=== PATIENT | female | born 1985 | race Caucasian/White ===

== ENCOUNTER 2016-05-23 21:51 | Observation (INO) | payer BC, OTHER ==
[~2016-05-23] VITALS: Ht 162.6 cm; Wt 57.1 kg
[~2016-05-23 21:51] MED LIST: DIPH-416 PO; PROM25TA PO
[2016-05-23] MEDS ORDERED: ONDANSETRON INJ 2 MG/ML 2 ML VIAL IV STA (22:50)
[2016-05-23] MEDS ORDERED: SODIUM CHLORIDE 0.9% 1000ML 1,000 ML IV STA (22:50)
[2016-05-23] MEDS ORDERED: MoRPHine SULFATE 2 MG/ML CARP IV STA (22:50)
[2016-05-23] MEDS ORDERED: CHOL100027 PO (22:55)
[2016-05-23] MEDS ORDERED: OMEG12006 PO (22:55)
[2016-05-23] MEDS ORDERED: MULT-506 PO (22:55)
[2016-05-23] MEDS ORDERED: B-COTAB18 PO (22:55)
[2016-05-23] MEDS ORDERED: OPTIRAY 320 IV PRN (23:00)
[2016-05-23 23:10] LABS: BASO % 0.3 %; BASO ABS # 0.04 K/uL (0-0.2); COMPLETE YES; EOS % 0.2 %; HEMATOCRIT 33.3 % (37-47); IG% 0.2 %; LYMPH % 11.2 %; LYMPH ABS # 1.44 K/uL (1.2-3.4); MEAN CELL VOLUME 84.1 fL (80-100); MEAN CORPUSCULAR HEMOGLOBIN 27.3 pg (25-34); MEAN CORPUSCULAR HGB CONC 32.4 g/dl (32-36); MEAN PLATELET VOLUME 10.7 fL (7.4-10.4); MONO % 5.4 %; NEUT % 82.7 %; PLATELET COUNT 157 K/uL (130-400); RED BLOOD COUNT 3.96 M/uL (4.2-5.4); WHITE BLOOD COUNT 12.86 K/uL (4.8-10.8)
[2016-05-23 23:14] LABS: URINE APPEARANCE CLEAR (CLEAR); URINE BILIRUBIN NEG (NEG); URINE COLOR YELLOW; URINE EPITHELIAL CELL AUTO 20-30 /lpf (0-5); URINE NITRITE NEG (NEG); URINE PH 7.5 (4.5-7.5); URINE SPECIFIC GRAVITY 1.007 (1.000-1.030); UROBILINOGEN NEG (NEG); ZZUR CULT IF INDIC CLEAN CATCH YES
[2016-05-23 23:17] LABS: MANUAL MICROSCOPIC REQUIRED? NO; REVIEW REQ? NO
[2016-05-23 23:31] LABS: BUN/CREATININE RATIO 11.6 (10-20); CALCIUM 8.6 mg/dl (8.5-10.1); CREATININE 0.7 mg/dl (0.60-1.20); MAGNESIUM 2.4 mg/dl (1.8-2.4); POTASSIUM 3.7 mmol/L (3.5-5.1)
[2016-05-23 23:33] LABS: ALB/GLOB RATIO 1.1 (0.9-2)
[2016-05-24] VITALS (8 sets, daily range): BP systolic 88–99; BP diastolic 53–62; PULSE 76–90; TEMP 36.9–37.2; O2SAT 96–99; Ht 162.6 cm; Wt 57.1 kg
[2016-05-24] MEDS ORDERED: MoRPHine SULFATE 4 MG/ML 1 ML CARP\\VIAL IV STA (00:02)
[2016-05-24] MEDS ORDERED: MoRPHine SULFATE 2 MG/ML CARP IV STA ×2 (01:17→04:02)
[2016-05-24] MEDS ORDERED: CEFOXITIN SOD 2 GM VIAL IV STA (04:45)
[2016-05-24] MEDS ORDERED: SODIUM CHLORIDE 0.9% 1000ML 1,000 ML IV STA (04:45)
[2016-05-24] MEDS ORDERED: FENTANYL CITRATE INJ 50 MCG/1 ML 2 ML VIAL ONE (05:45)
[2016-05-24] MEDS ORDERED: MIDAZOLAM HCL 1 MG/ML 2ML VIAL ONE (05:45)
--- NOTE | 2016-05-24 06:08 | History and Physical ---
History & Physical Date May 24, 2016. Chief Complaint abdominal pain for approx 36 hours History of Present Illness The patient is a 30 year old female with complaints of Additional History Hepatic Disease: No Endocrine Disorder: No Kidney Disease: No Hypertension: No Heart Disease: No Bleeding Tendencies: No Infectious Diseases: No Allergies Coded Allergies: No Known Allergies (Unverified , 11/18/14) Home Medications Scheduled B-Complex Vitamins (Vitamin B Complex), 1 TAB PO DAILY Cholecalciferol (Vitamin D 1000 Unit), 1,000 INTER.UNIT PO DAILY Multivitamin (Multivitamin), 1 TAB PO DAILY [place]-3 Fatty Acids ([place] 3), 1 CAP PO TID Physical Examination Skin: warm/dry Eyes: normal inspection, EOMI Head: normocephalic Neck: supple, trachea midline Respiratory/Chest: no respiratory distress Cardiovascular: regular rate, rhythm, no edema Abdomen / GI: + pertinent finding (+diffuse ttp > in RLQ and suprapubic region. + guarding/rebound) Extremities: normal inspection Neurologic/Psych: alert, oriented x 3 Diagnosis acute appendicitis Plan of Treatment discussed options/risks ( bleeding/dvt/pe/infection/injury to organs etc..). answered their questions. Ok to proceed with lap appy possible open/surgery as needed.
[2016-05-24] MEDS ORDERED: BUPIVACAINE/EPINEPHRINE 0.5% MPF 1:200,000 30 ML VIAL ONE (06:09)
[2016-05-24] MEDS ORDERED: ATROPINE SULFATE 0.1 MG/ML 5ML SYR IV PRN (06:15)
[2016-05-24] MEDS ORDERED: HYDROmorphone INJ 2 MG/ML SYR/VIAL IV PRN (06:15)
[2016-05-24] MEDS ORDERED: KETOROLAC TROMETHAMINE 30 MG/ML VIAL IV. PRN (06:15)
[2016-05-24] MEDS ORDERED: ONDANSETRON INJ 2 MG/ML 2 ML VIAL IV PRN (06:15)
[2016-05-24] MEDS ORDERED: PROMETHAZINE HCL INJ 12.5 MG in SODIUM CHLORIDE 0.9% 50ML 50 ML IV PRN (06:15)
[2016-05-24] MEDS ORDERED: HYDR-5688 PO (06:25)
--- NOTE | 2016-05-24 07:27 | DIAGNOSTIC IMAGING REPORT ---
ABDOMEN AND PELVIS CT WITH ORAL CONTRAST CT DOSE: 280.88 mGy.cm HISTORY: Right lower quadrant abdominal pain. TECHNIQUE: Multiaxial CT images of the abdomen and pelvis were performed following the use of oral contrast. COMPARISON STUDY: Abdomen and pelvis CT 05/24/2016. FINDINGS: The lung bases are clear. No pneumoperitoneum. No pneumatosis. The unenhanced liver, spleen, adrenal glands, pancreas, and kidneys are unremarkable. No hydronephrosis. Normal gallbladder. No retroperitoneal lymphadenopathy. No evidence for bowel obstruction. The bladder is not well-distended but appears unremarkable. Left ovarian cystic lesions are again identified. These measure up to 3.3 cm in size. The proximal portion of the appendix is normal in caliber and fills with contrast. This is seen on image 297. However, the mid to distal portion is fluid-filled and distended up to 1 cm. No significant periappendiceal fat stranding time. Contrast is seen throughout the colon. IMPRESSION: The proximal portion of the appendix is normal in caliber and filled with oral contrast. However, the mid to distal portion is fluid-filled and distended up to 1 cm. This no significant periappendiceal fat stranding at this time. However, this is considered abnormal and could represent an early acute appendicitis. Left ovarian cysts are again noted. Electronically signed by: Obie Landrum M.D. 05/24/2016 7:25 AM Dictated Date/Time: 05/24/2016 7:19 AM
--- NOTE | 2016-05-24 07:34 | DIAGNOSTIC IMAGING REPORT ---
CT ABD/PELVIS IV CONTRAST ONLY CLINICAL HISTORY: Lower abdominal pain COMPARISON STUDY: Pelvic ultrasound dated 05/23/2016 TECHNIQUE: Following the IV administration of 91 mL of Optiray-320, CT scan of the abdomen and pelvis was performed from the lung bases to the proximal femurs. Images are reviewed in the axial, sagittal, and coronal planes. IV contrast was administered without complication. CT DOSE: 276.57 mGy.cm FINDINGS: Lower chest: The heart is normal in size and configuration, without pericardial effusion. The lung bases and pleural spaces are clear. Liver: The contrast-enhanced liver is normal in size, contour, and attenuation. There is no intrahepatic biliary ductal dilatation. The hepatic veins and portal veins are patent. Gallbladder: Unremarkable. Spleen: Normal in size and attenuation. Pancreas: Unremarkable. Adrenal glands: Unremarkable. Kidneys: There is symmetric renal cortical enhancement. The kidneys are normal in size without hydronephrosis. Bowel: There are no transition zones indicate bowel obstruction. The appendix is not visualized with certainty. The examination is limited due to the lack of oral contrast. Peritoneum: There is no intraperitoneal free air or abdominal ascites. Vasculature: The abdominal aorta is normal in course and caliber. Adenopathy: None. Pelvic viscera: There are tangential left ovarian cystic lesions measuring 5.8 cm in aggregate. Skeletal structures: No destructive osseous lesions are seen. IMPRESSION: 1. No evidence of bowel obstruction. No evidence of free air 2. Tangential left ovarian cystic lesions measuring 5.8 cm in aggregate 3. Nonvisualization of the appendix. No pericecal inflammatory changes identified. Electronically signed by: Ervin Dove M.D. 05/24/2016 7:32 AM Dictated Date/Time: 05/24/2016 7:25 AM
--- NOTE | 2016-05-24 07:55 | [facility] Operative Report ---
Operative Report Operative Date May 24, 2016. Pre-Operative Diagnosis Acute appendicitis Post-Operative Diagnosis 1. acute appendicitis 2. ruptured/hemorrhagic right ovarian cyst vs endomet Procedure(s) Performed 1. lap appy 2. peritoneal bx Surgeon Dr. Willis Hide Trimmer Surgeon(s) Atif Wells PA-C Findings acute appendicitis;ruptured right ovarian cyst; ? endometriosis Specimens A. Appendix B. peritoneal biopsy Anesthesia get Disposition Recovery Room / PACU I attest to the content of the Intraoperative Record and any orders documented therein. Any exceptions are noted below.
[2016-05-24] MEDS ORDERED: MEPERIDINE HCL 25 MG/ML CARP IV PRN (08:15)
[2016-05-24] MEDS ORDERED: MoRPHine SULFATE 4 MG/ML 1 ML CARP\\VIAL IV PRN (08:15)
[2016-05-24] MEDS ORDERED: MEPERIDINE HCL 25 MG/ML CARP ONE (08:29)
--- NOTE | 2016-05-24 08:34 | DIAGNOSTIC IMAGING REPORT ---
PELVIC ULTRASOUND, TRANSABDOMINAL AND TRANSVAGINAL HISTORY: pelvic pain/bloating COMPARISON: None. FINDINGS: Uterus: Retroflexed. Endometrial stripe: 3 mm in thickness. Right ovary: Normal in size and demonstrates normal color flow. Nonspecific soft tissue adjacent to the right ovary which demonstrates increased vascularity/color flow. Left ovary: 5.6 x 2.7 x 4.9 cm. There are 2 similar-appearing hyperechoic complex cystic lesions. One of these demonstrate a fluid/fluid level. The dominant lesion measures 3.9 cm. These likely represent hemorrhagic cysts. Miscellaneous:Trace pelvic free fluid. IMPRESSION: 1. There are 2 similar-appearing hyperechoic complex cystic lesions within the left ovary. One of these demonstrates a fluid/fluid level. Therefore, these likely represent hemorrhagic cysts. The dominant lesion measures 3.9 cm. Follow-up pelvic ultrasound in 6-8 weeks is recommended to ensure resolution. 2. Normal right ovary. However, there is nonspecific soft tissue adjacent to the right ovary which demonstrates increased vascularity. This could be due to bowel or an inflamed fallopian tube. Electronically signed by: Obie Landrum M.D. 05/24/2016 8:32 AM Dictated Date/Time: 05/24/2016 8:27 AM
--- NOTE | 2016-05-24 08:47 | OPERATIVE REPORT ---
DATE OF OPERATION: 05/24/2016 PREOPERATIVE DIAGNOSIS: Acute appendicitis. POSTOPERATIVE DIAGNOSES: Same with a ruptured right ovarian cyst, hemoperitoneum, and questionable pelvic endometriosis. PROCEDURES: 1. Laparoscopic appendectomy. 2. Peritoneal biopsy to rule out endometriosis. SURGEON: Dr. Willis. E [employer] MANAGER: Atif Wells PA-C. ESTIMATED BLOOD LOSS: 20 mL COMPLICATION: No immediate. ANESTHESIA: General. The patient tolerated the procedure well. OPERATIVE NOTE: After informed consent was obtained, the patient was taken to the operating suite, placed in supine position. After successful intubation, a Rasmussen catheter was placed and the abdomen was sterilely prepped and draped in usual fashion. A periumbilical incision was made with an 11 blade scalpel and carried down through the soft tissues using electrocautery. Anterior rectus fascia was opened using electrocautery and two #0 Vicryl stay sutures were placed. Peritoneum was elevated with hemostats and incised under direct vision using a Metzenbaum scissors. A finger sweep was performed and a 12 mm [place] trocar was placed. The abdomen was insufflated to 18 mmHg. Laparoscope was inserted and the abdomen examined 360 degrees. We immediately noted blood within the pelvis. We placed a suprapubic 5 mm port and a left lower quadrant 12 mm port under direct vision. The patient was airplaned to the left and placed in a slight Trendelenburg position. We suctioned out the pelvic blood. It was not a large amount of blood. There was a ruptured right ovarian cyst with clot on it. On the right ovary, there was also extensive blood and clot as well as on the anterior surface of the sigmoid and the undersurface of the uterus. There was this abnormal appearing tissue, it was difficult for me to tell if it was endometrial tissue versus blood staining versus blood clot. There did seem to be a slight inflammatory type of reaction between the patient's left ovary and the sigmoid colon. When we manipulated this area, there was some old chocolate cyst type of blood that we were able to express out of the area between the left ovary and the sigmoid. I got all out of this that I safely could and then suctioned and thoroughly irrigated the pelvis. On some of the surfaces of the uterus as well as the right ovary and peritoneum, I was able to obtain several pieces of specimen that we sent to be checked for possible endometriosis. We did turn our attention to the right lower quadrant. The appendix itself was retrocecal. We opened up the peritoneal window laterally and bluntly dissected out the appendix. The proximal part of the appendix was dilated and felt thickened. I was able to create a window in the mesoappendix with the [place] dissector and staple off the base of the appendix from the cecum with a ROSEMARY may cartridge linear stapler. We then continued to dissect free the appendix. I then used the same may stapler to take down the mesoappendix. We placed it into an EndoCatch bag and removed it from the abdomen. The staple line was intact, there was adequate hemostasis. We did run the terminal ileum backward for about 3-4 feet and saw no other abnormality. No other abnormality other than previously stated was found. We did thoroughly irrigate the right lower quadrant as well as the pelvis again. At the end of the case, there was adequate hemostasis. We then removed all the trocars and desufflated the abdomen. The fascia of the camera port as well as the left lower quadrant was closed with 0 Vicryl in [id number] fashion. The wounds were all irrigated and closed using 4-0 Monocryl. Marcaine was injected around them for postoperative analgesia and skin glue used as dressings. The patient was awakened, extubated and transferred to recovery in stable condition. I attest to the content of the Intraoperative Record and any orders documented therein. Any exceptio ns are noted below.
--- NOTE | 2016-05-24 08:55 | Anesthesiology Progress Note ---
Anesthesia Post Op Note Date & Time May 24, 2016 at 08:54 Vital Signs Pain Intensity: 6 Vital Signs Past 12 Hours Date Time Temp Pulse Resp B/P Pulse Ox O2 Delivery O2 Flow Rate FiO2 05/24/16 08:35 105 24 123/82 100 Nasal Cannula 2 05/24/16 08:25 80 24 108/54 100 Nasal Cannula 2 05/24/16 08:15 92 24 109/56 100 Nasal Cannula 2 05/24/16 08:09 36.3 100 24 116/59 99 Nasal Cannula 2 05/24/16 05:55 89 18 116/65 98 Room Air 05/24/16 04:00 86 18 102/54 99 Room Air 05/24/16 01:29 86 18 99/55 98 Room Air 05/24/16 00:09 85 18 96/53 100 Room Air 05/23/16 21:54 37.4 112 18 116/60 100 Room Air Notes Mental Status: alert / awake / arousable, participated in evaluation Pt Amnestic to Procedure: Yes Nausea / Vomiting: adequately controlled Pain: adequately controlled Airway Patency, RR, SpO2: stable & adequate BP & HR: stable & adequate Hydration State: stable & adequate Anesthetic Complications: no major complications apparent
[2016-05-24] MEDS ORDERED: IV FLUIDS COMPLETED PRN (09:00)
[2016-05-24] MEDS: LACTATED RINGER'S 1000ML 1,000 ML IV SCH ×2 (09:47→20:04)
[2016-05-24] MEDS: ONDANSETRON INJ 2 MG/ML 2 ML VIAL IV PRN ×2 (09:58→15:59)
[2016-05-24] MEDS ORDERED: ACETAMINOPHEN IV 100 ML IV PRN (13:45)
[2016-05-24] MEDS ORDERED: HYDROmorphone INJ 0.5 MG/0.5 ML SYR ONE (14:34)
[2016-05-24] MEDS ORDERED: ACETAMINOPHEN IV 1,000 MG in EMPTY BAG 0 ML IV SCH (15:00)
[2016-05-24] MEDS: HYDROmorphone INJ 0.5 MG/0.5 ML SYR IV PRN (16:51)
[2016-05-24] MEDS: HYDROCODONE/ACETAMOPHEN 5/325MG TAB PO PRN ×2 (20:08→23:43)
[2016-05-25] MEDS ORDERED: ACETAMINOPHEN IV 1,000 MG in EMPTY BAG 0 ML IV PRN
[2016-05-25] MEDS: HYDROmorphone INJ 0.5 MG/0.5 ML SYR IV PRN ×2 (00:35→05:01)
[2016-05-25 03:21] VITALS: BP 102/67; PULSE 69; TEMP 37; O2SAT 98
[2016-05-25] MEDS: LACTATED RINGER'S 1000ML 1,000 ML IV SCH (03:51)
[2016-05-25] MEDS: HYDROCODONE/ACETAMOPHEN 5/325MG TAB PO PRN (03:52)
[2016-05-25] MEDS: ONDANSETRON INJ 2 MG/ML 2 ML VIAL IV PRN (07:29)
[2016-05-25 07:38] VITALS: BP 103/64; PULSE 64; TEMP 36.7; O2SAT 98
[2016-05-25 08:06] LABS: BASO % 0.2 %; BASO ABS # 0.01 K/uL (0-0.2); EOS % 1.2 %; IG% 0.2 %; LYMPH ABS # 1.31 K/uL (1.2-3.4); MEAN CELL VOLUME 85.6 fL (80-100); MEAN CORPUSCULAR HEMOGLOBIN 27.2 pg (25-34); MEAN CORPUSCULAR HGB CONC 31.8 g/dl (32-36); MEAN PLATELET VOLUME 10.4 fL (7.4-10.4); MONO % 7.6 %; NEUT % 63.8 %; PLATELET COUNT 132 K/uL (130-400); RED BLOOD COUNT 3.27 M/uL (4.2-5.4); WHITE BLOOD COUNT 4.86 K/uL (4.8-10.8)
[2016-05-25 08:53] LABS: COMPLETE YES; GIANT PLATELETS 1+; HYPOCHROMIA PRESENT
--- NOTE | 2016-05-25 11:14 | Surgery Progress Note ---
Surgery Progress Note Date of Service May 25, 2016. Subjective Post OP Day: 1 + bowel movement, + feeling well, + nausea overall feeling much better. having loose bm's and some mild nausea. no emesis. doug diet. Objective Vital Signs: Date Time Temp Pulse Resp B/P Pulse Ox O2 Delivery O2 Flow Rate FiO2 05/25/16 07:42 Room Air 05/25/16 07:38 36.7 64 19 103/64 98 Room Air 05/25/16 03:21 37.0 69 16 102/67 98 Room Air 05/24/16 23:30 Room Air 05/24/16 23:05 36.9 76 16 95/62 99 Room Air 05/24/16 16:30 99 Room Air 05/24/16 15:42 37.1 78 18 88/56 99 Room Air 05/24/16 11:22 88 95/57 General Appearance: no apparent distress Head: normocephalic Abdomen: soft, + pertinent finding (mild distension. expected tenderness) Incision(s): clean, dry, intact Laboratory Results: Results Past 24 Hours Test 05/25/16 07:53 Range/Units White Blood Count 4.86 4.8-10.8 K/uL Red Blood Count 3.27 4.2-5.4 M/uL Hemoglobin 8.9 12.0-16.0 g/dL Hematocrit 28.0 37-47 % Mean Corpuscular Volume 85.6 80-100 fL Mean Corpuscular Hemoglobin 27.2 25-34 pg Mean Corpuscular Hemoglobin Concent 31.8 32-36 g/dl Platelet Count 132 130-400 K/uL Mean Platelet Volume 10.4 7.4-10.4 fL Neutrophils (%) (Auto) 63.8 % Lymphocytes (%) (Auto) 27.0 % Monocytes (%) (Auto) 7.6 % Eosinophils (%) (Auto) 1.2 % Basophils (%) (Auto) 0.2 % Neutrophils # (Auto) 3.10 1.4-6.5 K/uL Lymphocytes # (Auto) 1.31 1.2-3.4 K/uL Monocytes # (Auto) 0.37 0.11-0.59 K/uL Eosinophils # (Auto) 0.06 0-0.5 K/uL Basophils # (Auto) 0.01 0-0.2 K/uL RDW Standard Deviation 41.2 36.4-46.3 fL RDW Coefficient of Variation 13.0 11.5-14.5 % Immature Granulocyte % (Auto) 0.2 % Immature Granulocyte # (Auto) 0.01 0.00-0.02 K/uL Giant Platelets 1+ Hypochromasia PRESENT Microbiology Results 05/24/16 C.difficile Toxin B Gene (PCR) - Final, Complete No C. difficile toxin B gene detected Assessment & Plan POD 1 from [facility]. also had hemorrhagic left ovarian cyst and menstrual cycle clinically improved..wbc decreased to 4 ( 12) slight decrease in H/H likely secondary to menses/dilution/surgery/cyst wants to go home ok for d/c. instructions given.
[2016-05-25] MEDS ORDERED: ONDA4TAB10 SL (11:17)
--- NOTE | 2016-05-25 11:18 | Discharge Instructions ---
Discharge Instructions Date of Service May 24, 2016. Admission Reason for Admission: Severe Abdominal Pain - Loating - Fever - [place] Discharge Discharge Diagnosis / Problem: appendicitis;ovarian cyst Discharge Goals Goal(s): Decrease discomfort, Improve function Activity Recommendations Activity Limitations: as noted below Exercise/Sports Limitations: until after follow-up appointment May Resume Sexual Activity: after follow-up appointment Shower/Bathe: tomorrow . Instructions / Follow-Up Instructions / Follow-Up call [phone] to schedule a follow up with Dr. Willis in 1-2 weeks or if you have any problems/questions. Current Hospital Diet Patient's current hospital diet: Discharge Diet Recommended Diet: Regular Diet Procedures Procedures Performed: lap appy Pending Studies Studies pending at discharge: yes List of pending studies: path report Medical Emergencies . Who to Call and When: Medical Emergencies: If at any time you feel your situation is an emergency, please call 911 immediately. . Non-Emergent Contact Non-Emergency issues call your: Primary Care Provider, Surgeon Call Non-Emergent contact if: temperature is above 101, wound has increased drainage, wound has increased redness, wound has increased pain . "Provider Documentation" section prepared by Tian Willis. VTE Core Measure Inpt VTE Proph given/why not?: SCD's
[2016-05-25] MEDS ORDERED: CHOL4POW2 PO ×2 (11:21→11:27)
[2016-05-25 11:35] VITALS: BP 103/64; PULSE 64; TEMP 36.7; O2SAT 98
--- NOTE | 2016-05-26 10:24 | DISCHARGE SUMMARY ---
PRIMARY DISCHARGE DIAGNOSES: 1. Acute appendicitis. 2. Ruptured right ovarian cyst. PROCEDURE PERFORMED: Laparoscopic appendectomy and peritoneal biopsy to rule out endometriosis. HOSPITAL COURSE: The patient is a 30-year-old female who presented to the Emergency Department with a complaint of abdominal pain. Workup included ultrasound which showed hemorrhagic left ovarian cyst. Noncontrast CT again showed left ovarian cyst. The appendix was not visualized, and therefore, a contrast CT was obtained. The appendix was fluid filled, distended 1 cm, possibly consistent with early appendicitis. Her white count was also elevated. She was taken to the operating room for laparoscopy. She did have an abnormal appearing appendix as well as a hemorrhagic right ovarian cyst. The procedure was well tolerated. She was transferred to the surgical floor. Her pain control was marginal that evening. By the next morning, her pain control was better, she was tolerating oral analgesics and the diet. She was stable for discharge. DISCHARGE INSTRUCTIONS: Discharge home. Follow up with Dr. Willis in 2 weeks. PATHOLOGY: Pending on the appendix specimen as well as the peritoneal biopsies. DISCHARGE MEDICATIONS: [place] 1-2 tablets every 4 hours as needed, Zofran 4 mg every 6 hours as needed, Questran 4-gram powder packet q. 6 hours. Can resume her home supplements including vitamin B, vitamin D, multivitamin, and omega-3. MTDD
--- NOTE | 2016-05-27 03:21 | EMERGENCY ROOM VISIT NOTE ---
History First contact with patient: 22:41 Chief Complaint: ABDOMINAL PAIN Stated Complaint: APPENDICITIS Nursing Triage Summary: Pt reports mid abdominal pain that radiates into the upper abdomen with movement. Pt reports that pain started yesterday with nausea and vomiting. Pt has been unable to eat or drink much today and has not vomited since last night. History of Present Illness The patient is a 30 year old female who presents to the Emergency Department by private vehicle for evaluation of her lower abdominal pain which is focused into the RIGHT lower quadrant. She reports that she has had symptoms for the past 24 hours. She reports that her symptoms initially started with cramping abdominal pain which she attributed to the start of her menses. She reports that she is now out. Seen bloating and pressure as well as stabbing pain to the RIGHT lower quadrant. This evening, she developed a fever of 101F. She took Aleve at approximately 1 PM. She describes this current menstrual cycle as "normal" without heavy bleeding. The patient reports some dizziness as well as nausea. She rates her current discomfort as an 8/10. She denies a previous bowel surgeries. Patient denies any headaches, chest pain, palpitations, shortness of breath, hematemesis, hematochezia, melena, hematuria, or dysuria. Review of Systems A complete 10-point Review of Systems was discussed with the patient, with pertinent positives and negatives listed in the History of Present Illness. All remaining Review of Systems questions can be considered negative unless otherwise specified. Past Medical/Surgical History Medical Problems: (1) Appendicitis Social History Smoking Status: Never Smoker Smokeless Tobacco Use: No Drug Use: none Occupation Status: employed Current/Historical Medications Scheduled B-Complex Vitamins (Vitamin B Complex), 1 TAB PO DAILY Cholecalciferol (Vitamin D 1000 Unit), 1,000 INTER.UNIT PO DAILY Cholestyramine Light (Questran Powder Light), 4 GM PO Q6 Multivitamin (Multivitamin), 1 TAB PO DAILY Jal-3 Fatty Acids (Jal 3), 1 CAP PO TID Ondasetron Odt (Zofran Odt), 4 MG SL Q6H Scheduled PRN Hydrocodone/Acetaminophen 5MG/325MG ([place] 5MG/325MG), 1-2 TABLET PO Q4H PRN for Pain Allergies Coded Allergies: No Known Allergies (Unverified , 11/18/14) Physical Exam Vital Signs Date Time Temp Pulse Resp B/P Pulse Ox O2 Delivery O2 Flow Rate FiO2 05/24/16 08:15 92 24 109/56 100 Nasal Cannula 2 05/24/16 08:09 36.3 100 24 116/59 99 Nasal Cannula 2 05/24/16 05:55 89 18 116/65 98 Room Air 05/24/16 04:00 86 18 102/54 99 Room Air 05/24/16 01:29 86 18 99/55 98 Room Air 05/24/16 00:09 85 18 96/53 100 Room Air 05/23/16 21:54 37.4 112 18 116/60 100 Room Air Pain Rating (0-10): 8 Physical Exam VITAL SIGNS - Vital signs and nursing notes were reviewed. GENERAL - 30-year-old female appearing her stated age who is in no acute distress. Communicates well with provider and answers questions appropriately. LUNGS - Chest wall symmetric without accessory muscle use, intercostals retractions, or central cyanosis. Normal vesicular breath sounds CTA B/L. No wheezes, rales, or rhonchi appreciated. CARDIAC - RRR with S1/S2. No murmur, rubs, or gallops appreciated. ABDOMEN - Abdominal contour flat and without pulsations or visible masses. BS normoactive all four quadrants. Moderate tenderness to palpation appreciated in the RIGHT lower quadrant. No guarding. No Rebound Tenderness. Negative Rovsing' s. Negative Martinez's. No palpable masses, hepatosplenomegaly, or ascites noted. PSYCH - A&Ox3 and cooperates fully with examiner. Pt is very pleasant and interacts well with examiner. Medical Decision & Procedures ER Provider Diagnostic Interpretation: Radiological imaging and reports were reviewed by myself. Radiologist's Interpretation as follows: PELVIC ULTRASOUND, TRANSABDOMINAL AND TRANSVAGINAL HISTORY: pelvic pain/bloating COMPARISON: None. FINDINGS: Uterus: Retroflexed. Endometrial stripe: 3 mm in thickness. Right ovary: Normal in size and demonstrates normal color flow. Nonspecific soft tissue adjacent to the right ovary which demonstrates increased vascularity/color flow. Left ovary: 5.6 x 2.7 x 4.9 cm. There are 2 similar-appearing hyperechoic complex cystic lesions. One of these demonstrate a fluid/fluid level. The dominant lesion measures 3.9 cm. These likely represent hemorrhagic cysts. Miscellaneous:Trace pelvic free fluid. IMPRESSION: 1. There are 2 similar-appearing hyperechoic complex cystic lesions within the left ovary. One of these demonstrates a fluid/fluid level. Therefore, these likely represent hemorrhagic cysts. The dominant lesion measures 3.9 cm. Follow-up pelvic ultrasound in 6-8 weeks is recommended to ensure resolution. 2. Normal right ovary. However, there is nonspecific soft tissue adjacent to the right ovary which demonstrates increased vascularity. This could be due to bowel or an inflamed fallopian tube. CT ABD/PELVIS IV CONTRAST ONLY CLINICAL HISTORY: Lower abdominal pain COMPARISON STUDY: Pelvic ultrasound dated 05/23/2016 TECHNIQUE: Following the IV administration of 91 mL of Optiray-320, CT scan of the abdomen and pelvis was performed from the lung bases to the proximal femurs. Images are reviewed in the axial, sagittal, and coronal planes. IV contrast was administered without complication. CT DOSE: 276.57 mGy.cm FINDINGS: Lower chest: The heart is normal in size and configuration, without pericardial effusion. The lung bases and pleural spaces are clear. Liver: The contrast-enhanced liver is normal in size, contour, and attenuation. There is no intrahepatic biliary ductal dilatation. The hepatic veins and portal veins are patent. Gallbladder: Unremarkable. Spleen: Normal in size and attenuation. Pancreas: Unremarkable. Adrenal glands: Unremarkable. Kidneys: There is symmetric renal cortical enhancement. The kidneys are normal in size without hydronephrosis. Bowel: There are no transition zones indicate bowel obstruction. The appendix is not visualized with certainty. The examination is limited due to the lack of oral contrast. Peritoneum: There is no intraperitoneal free air or abdominal ascites. Vasculature: The abdominal aorta is normal in course and caliber. Adenopathy: None. Pelvic viscera: There are tangential left ovarian cystic lesions measuring 5.8 cm in aggregate. Skeletal structures: No destructive osseous lesions are seen. IMPRESSION: 1. No evidence of bowel obstruction. No evidence of free air 2. Tangential left ovarian cystic lesions measuring 5.8 cm in aggregate 3. Nonvisualization of the appendix. No pericecal inflammatory changes identified. ABDOMEN AND PELVIS CT WITH ORAL CONTRAST CT DOSE: 280.88 mGy.cm HISTORY: Right lower quadrant abdominal pain. TECHNIQUE: Multiaxial CT images of the abdomen and pelvis were performed following the use of oral contrast. COMPARISON STUDY: Abdomen and pelvis CT 05/24/2016. FINDINGS: The lung bases are clear. No pneumoperitoneum. No pneumatosis. The unenhanced liver, spleen, adrenal glands, pancreas, and kidneys are unremarkable. No hydronephrosis. Normal gallbladder. No retroperitoneal lymphadenopathy. No evidence for bowel obstruction. The bladder is not well-distended but appears unremarkable. Left ovarian cystic lesions are again identified. These measure up to 3.3 cm in size. The proximal portion of the appendix is normal in caliber and fills with contrast. This is seen on image 297. However, the mid to distal portion is fluid-filled and distended up to 1 cm. No significant periappendiceal fat stranding time. Contrast is seen throughout the colon. IMPRESSION: The proximal portion of the appendix is normal in caliber and filled with oral contrast. However, the mid to distal portion is fluid-filled and distended up to 1 cm. This no significant periappendiceal fat stranding at this time. However, this is considered abnormal and could represent an early acute appendicitis. Left ovarian cysts are again noted. Laboratory Results 05/23/16 22:58 Test 05/23/16 22:58 Urine Color YELLOW Urine Appearance CLEAR (CLEAR) Urine pH 7.5 (4.5-7.5) Urine Specific [place] 1.007 (1.000-1.030) Urine Protein NEG (NEG) Urine Glucose (UA) NEG (NEG) Urine Ketones NEG (NEG) Urine Occult Blood 1+ (NEG) Urine Nitrite NEG (NEG) Urine Bilirubin NEG (NEG) Urine Urobilinogen NEG (NEG) Urine Leukocyte Esterase NEG (NEG) Urine WBC (Auto) 0 /hpf (0-5) Urine RBC (Auto) 0-4 /hpf (0-4) Urine Hyaline Casts (Auto) 0 /lpf (0-5) Urine Epithelial Cells (Auto) 20-30 /lpf (0-5) Urine Bacteria (Auto) 1+ (NEG) Urine Test NEG (NEG) Anion Gap 10.0 mmol/L (3-11) Est Creatinine Clear Calc Drug Dose 99.7 ml/min Estimated GFR () 132.9 Estimated GFR (Non- 114.6 BUN/Creatinine Ratio 11.6 (10-20) Calcium Level 8.6 mg/dl (8.5-10.1) Magnesium Level 2.4 mg/dl (1.8-2.4) Total Bilirubin 0.6 mg/dl (0.2-1) Aspartate Amino Transf (AST/SGOT) 21 U/L (15-37) Alanine Aminotransferase (ALT/SGPT) 26 U/L (12-78) Alkaline Phosphatase 75 U/L (45-117) Total Protein 7.3 gm/dl (6.4-8.2) Albumin 3.9 gm/dl (3.4-5.0) Globulin 3.4 gm/dl (2.5-4.0) Albumin/Globulin Ratio 1.1 (0.9-2) Lipase 127 U/L (73-393) Medications Administered Medications (Trade) Dose Ordered Sig/Lubna Route Start Time Stop Time Status Last Admin Dose Admin Sodium Chloride (Nss 1000ml) 1,000 ml @ 250 mls/hr Q4H STAT IV 05/23/16 22:50 05/24/16 02:49 DC 05/23/16 22:59 250 MLS/HR Ondansetron HCl (Zofran Inj) 4 mg NOW STAT IV 05/23/16 22:50 05/23/16 22:53 DC 05/23/16 22:59 4 MG Morphine Sulfate (MoRPHine SULFATE INJ) 2 mg NOW STAT IV 05/23/16 22:50 05/23/16 22:53 DC 05/23/16 22:59 2 MG Morphine Sulfate (MoRPHine SULFATE INJ) 4 mg NOW STAT IV 05/24/16 00:02 05/24/16 00:03 DC 05/24/16 00:06 4 MG Morphine Sulfate (MoRPHine SULFATE INJ) 2 mg NOW STAT IV 05/24/16 01:17 05/24/16 01:18 DC 05/24/16 01:27 2 MG Morphine Sulfate (MoRPHine SULFATE INJ) 2 mg NOW STAT IV 05/24/16 04:02 05/24/16 04:03 DC 05/24/16 04:06 2 MG Cefoxitin Sodium 2000 mg 2,000 mg NOW STAT IV 05/24/16 04:45 05/24/16 04:47 DC 05/24/16 05:01 2,000 MG Sodium Chloride (Nss 1000ml) 1,000 ml @ 100 mls/hr Q10H STAT IV 05/24/16 04:45 05/24/16 06:18 DC 05/24/16 05:00 100 MLS/HR Bupivacaine HCl/ Epinephrine Bitart (Sensorcaine/ Epinephrine 0.5% Mpf 1:200,000) 30 ml STK-MED ONCE .ROUTE 05/24/16 06:09 05/24/16 06:10 DC 05/24/16 07:30 10 ML Ketorolac Tromethamine (Toradol Inj) 30 mg ONE PRN IV. 05/24/16 06:15 05/24/16 10:00 DC 05/24/16 08:20 30 MG Meperidine HCl 25 mg 25 mg Q10M PRN IV 05/24/16 08:15 05/24/16 13:30 DC 05/24/16 08:30 25 MG Lactated Ringer's (Lr 1000ml) 1,000 ml @ 100 mls/hr Q10H IV 05/24/16 08:12 05/25/16 12:03 DC 05/25/16 03:51 100 MLS/HR Ondansetron HCl (Zofran Inj) 4 mg Q4H PRN IV 05/24/16 08:15 05/25/16 12:03 DC 05/25/16 07:29 4 MG Morphine Sulfate (MoRPHine SULFATE INJ) 4 mg Q1H PRN IV 05/24/16 08:15 05/24/16 13:36 DC 05/24/16 09:58 4 MG Acetaminophen/ Hydrocodone Bitart ([place] 5/325 Tab) 1 tab Q4H PRN PO 05/24/16 08:15 05/25/16 12:03 DC 05/25/16 03:52 1 TAB ED Course Patient was seen and evaluated by myself. Labs were drawn, saline lock in place. The patient was hydrated with normal saline at a rate of 250 mL per hour. She was treated with 4 mg Zofran for nausea. She received 2 mg morphine for pain. Pelvic ultrasound and CT of the abdomen and pelvis with IV contrast was ordered. Patient was treated with an additional formerly grams morphine after pelvic ultrasound. Pelvic ultrasound results above. Laboratory results demonstrate a mild leukocytosis. The patient is not anemic. There are no significant electrolyte abnormalities. Urinalysis does not suggest infection. Urine was negative. CT results from able to demonstrate appendicitis secondary to inability to view the appendix. She is still reproducible in the RIGHT lower quadrant. She received an additional 2 mg morphine for pain. CT of the abdomen and pelvis with oral contrast was ordered. She was treated with an additional 2 mg morphine for pain. CT results above. Laboratory results and imaging studies were discussed with the patient who acknowledges understanding. She was treated with 2 g of IV Mefoxin at the recommendation of surgery. Patient was admitted for laparoscopic appendectomy. Patient admitted in stable condition. Medical Decision Given the patient's presentation and exam findings, I did elect to perform the above-mentioned workup. The patient presents today with pain to the RIGHT lower quadrant. She has no fever. She does have a mild leukocytosis. Ultrasound demonstrates ovarian cyst. Patient is having her menses at this time which is concerning for other possible psychological abnormalities. Regardless, the patient is tender in the RIGHT lower quadrant. Initial CT with IV contrast was nondiagnostic. CT with oral contrast, however, was concerning for possible early appendicitis. Given the patient's exam findings of RIGHT lower quadrant abdominal pain, surgery was consult and patient was taken to the OR suite for intervention. Patient was admitted in stable condition. In the evaluation and treatment of this patient, the following differential diagnoses were considered: Appendicitis, Diverticulitis, Diverticulosis, Colitis , Ischemic Colitis, Inflammatory Bowel Disease, Irritable Bowel Disease, Ovarian Torsion, Ovarian Cyst, Ectopic , Kidney Stone, Pyelonephritis, Hydronephrosis, Cholecystitis, Ascending Cholangitis, Choledocholithiasis, GERD. Impression Primary Impression: Appendicitis Departure Information Dispostion Admitted as an inpatient Condition FAIR Prescriptions Cholestyramine Light (QUESTRAN POWDER LIGHT) 4 Gm Pow 4 GM PO Q6, #30 DOSE 1 Refill Prov: Tian WillisO. 05/25/16 Ondasetron Odt (ZOFRAN ODT) 4 Mg Tab 4 MG SL Q6H for Nausea, #14 TAB Prov: Tian WillisO. 05/25/16 Hydrocodone/Acetaminophen 5MG/325MG ([place] 5MG/325MG) Tab 1-2 TABLET PO Q4H Y for Pain, #30 TAB Prov: Tian WillisO. 05/24/16 Referrals RV. Kulkarni MD (PCP) Forms Call Back Authorization, HOME CARE DOCUMENTATION FORM, IMPORTANT VISIT INFORMATION Patient Instructions My [facility] Problem Qualifiers Primary Impression: Appendicitis Appendicitis type: acute appendicitis Acute appendicitis type: with localized peritonitis Qualified Codes: K35.3 - Acute appendicitis with localized peritonitis
== END 2016-05-25 12:03 | disposition home or self-care (01) ==
LOC: ENRESERVTM → ENRESERVDT → C.EDB 21:55 → C.MSN 05-24 08:21
PROVIDERS: ADMIT Surgery; ATTEND Surgery
DX: D12.1 Benign neoplasm of appendix (principal); N83.201 Unspecified ovarian cyst, right side; N71.9 Inflammatory disease of uterus, unspecified

== ENCOUNTER → 2016-06-08 | Outpatient (CLI) | payer OTHER ==
[~2016-06-08] MED LIST changes: +B-COTAB18 PO; +CHOL100027 PO; +CHOL4POW2 PO; -DIPH-416 PO; +HYDR-5688 PO; +MULT-506 PO; +OMEG12006 PO; +ONDA4TAB10 SL; -PROM25TA PO
== END | disposition home or self-care (01) ==
LOC: C.LABSPEC 16:44
PROVIDERS: ATTEND Nurse Practitioner Adult Health
DX: R30.0 Dysuria (principal)

== ENCOUNTER → 2016-06-13 | Outpatient (CLI) | payer OTHER ==
[2016-06-13 15:43] LABS: URINE APPEARANCE CLEAR (CLEAR); URINE BILIRUBIN NEG (NEG); URINE COLOR YELLOW; URINE EPITHELIAL CELL AUTO 20-30 /lpf (0-5); URINE NITRITE NEG (NEG); URINE SPECIFIC GRAVITY 1.025 (1.000-1.030); UROBILINOGEN NEG (NEG); ZZUR CULT IF INDIC CLEAN CATCH NO
[2016-06-13 15:49] LABS: MANUAL MICROSCOPIC REQUIRED? NO; REVIEW REQ? NO
== END | disposition home or self-care (01) ==
LOC: C.LAB1850 14:21
PROVIDERS: ATTEND Nurse Practitioner Adult Health
DX: N39.0 Urinary tract infection, site not specified (principal)

== ENCOUNTER → 2017-01-16 | Outpatient (CLI) | payer OTHER ==
[~2017-01-16] MED LIST changes: -HYDR-5688 PO; -ONDA4TAB10 SL
[2017-01-16 10:13] LABS: BASO ABS # 0.05 K/uL (0-0.2); COMPLETE YES; EOS % 1.4 %; HEMATOCRIT 34.6 % (37-47); LYMPH ABS # 1.31 K/uL (1.2-3.4); MEAN CORPUSCULAR HEMOGLOBIN 25.8 pg (25-34); MEAN CORPUSCULAR HGB CONC 31.5 g/dl (32-36); MEAN PLATELET VOLUME 10.6 fL (7.4-10.4); MONO % 6.2 %; NEUT % 64.4 %; PLATELET COUNT 258 K/uL (130-400); RED BLOOD COUNT 4.22 M/uL (4.2-5.4); WHITE BLOOD COUNT 4.86 K/uL (4.8-10.8)
[2017-01-16 10:42] LABS: BLOOD UREA NITROGEN 10 mg/dl (7-18); BUN/CREATININE RATIO 14.2 (10-20); CALCIUM 9.3 mg/dl (8.5-10.1); CARBON DIOXIDE 28 mmol/L (21-32); CHLORIDE 103 mmol/L (98-107); CREATININE 0.73 mg/dl (0.60-1.20); GLUCOSE 87 mg/dl (70-99); POTASSIUM 4.1 mmol/L (3.5-5.1); SODIUM 136 mmol/L (136-145)
[2017-01-16 10:53] LABS: CHOLESTEROL 155 mg/dl (0-200); HDL CHOLESTEROL 76 mg/dl; LDL CHOLESTEROL CALCULATED 70 mg/dl; THYROID STIMULATING HORMONE 0.146 uIu/ml (0.300-4.500); TRIGLYCERIDES 47 mg/dl (0-150); VERY LOW DENSITY LIPOPROT CALC 9 mg/dl
[2017-01-16 14:29] LABS: TOTAL IRON BINDING CAPACITY 469 mcg/dl (250-450)
== END | disposition home or self-care (01) ==
LOC: C.LAB1850 09:00
PROVIDERS: ATTEND Internal Medicine
DX: D50.9 Iron deficiency anemia, unspecified (principal); R94.6 Abnormal results of thyroid function studies; N39.0 Urinary tract infection, site not specified; E55.9 Vitamin D deficiency, unspecified; Z13.220 Encounter for screening for lipoid disorders; R03.0 Elevated blood-pressure reading, without diagnosis of hypertension

== ENCOUNTER → 2017-08-31 | Outpatient (CLI) | payer OTHER ==
[2017-08-31 12:33] LABS: BASO % 0.9 %; BASO ABS # 0.05 K/uL (0-0.2); EOS % 0.7 %; EOS ABS # 0.04 K/uL (0-0.5); HEMATOCRIT 42.2 % (37-47); HEMOGLOBIN 14.7 g/dL (12.0-16.0); IG# 0.01 K/uL (0.00-0.02); LYMPH % 32.2 %; LYMPH ABS # 1.76 K/uL (1.2-3.4); MEAN CELL VOLUME 90.2 fL (80-100); MEAN CORPUSCULAR HEMOGLOBIN 31.4 pg (25-34); MEAN CORPUSCULAR HGB CONC 34.8 g/dl (32-36); MEAN PLATELET VOLUME 10.9 fL (7.4-10.4); MONO % 5.7 %; MONO ABS # 0.31 K/uL (0.11-0.59); NEUT % 60.3 %; PLATELET COUNT 229 K/uL (130-400); RED CELL DISTRIBUTION WIDTH SD 41.9 fL (36.4-46.3); WHITE BLOOD COUNT 5.47 K/uL (4.8-10.8)
[2017-08-31 12:57] LABS: ALBUMIN 4.4 gm/dl (3.4-5.0); ALKALINE PHOSPHATASE 59 U/L (45-117); ALT/SGPT 30 U/L (12-78); AST/SGOT 17 U/L (15-37); BLOOD UREA NITROGEN 5 mg/dl (7-18); CARBON DIOXIDE 27 mmol/L (21-32); CREATININE 0.74 mg/dl (0.60-1.20); GLUCOSE 91 mg/dl (70-99); POTASSIUM 3.9 mmol/L (3.5-5.1); SODIUM 137 mmol/L (136-145); TOTAL PROTEIN 8.3 gm/dl (6.4-8.2); TRANSFERRIN 255 mg/dl (200-360)
== END | disposition home or self-care (01) ==
LOC: C.LAB1850 11:04
PROVIDERS: ATTEND Physician Assistant
DX: D50.9 Iron deficiency anemia, unspecified (principal); E55.9 Vitamin D deficiency, unspecified; N83.209 Unspecified ovarian cyst, unspecified side